=== PATIENT | male | born 1940 ===

== ENCOUNTER → 2017-07-28 | Day surgery (SDC) | payer OTHER ==
[~2017-07-28] VITALS: Ht 185.4 cm; Wt 79.4 kg
--- NOTE | 2017-07-28 14:53 | Operative Report ---
Operative/Inv Procedure Report Surgery Date: 07/28/17 Name of Procedure: Right retrograde pyelogram/brushing and selective cytology Pre-Operative Diagnosis: Hematuria right hydronephrosis right ureteral lesion Post-Operative Diagnosis: Same, rule out TCC of right ureter Estimated Blood Loss: scant Surgeon/Fisher Dip Net: Keith Robert MD Anesthesia: general endotracheal tube Drains: None Specimens: Right selective barbotage, right ureteral brushing Complications: None Condition: Good Operative Indication: Patient is a history of prostate cancer undergoing previous radiation therapy was noted to have microhematuria. Workup revealed right hydronephrosis, with a suspected right ureteral lesion. Operative/Procedure Note Note: After uneventful induction of general anesthesia patient was placed in the lithotomy position and prepped and draped in a sterile fashion. At this point a 22 Scottish cystoscope was passed per urethra and into the bladder thorough inspection of bladder did not reveal any mucosal lesions. Pylorus is identified , and noted to be normal. At this point it was catheterized with an open-ended catheter. A selective barbotage was performed and sent for analysis. At this point a brushing was performed and distal ureter, and sent for analysis. At this point a retrograde Polygram was performed, which revealed a large distal right ureteral lesion with dilation of the ureter in that area, leading to narrow distal ureter. At this point the cystoscope was removed the patient was then awakened and returned to recovery room in good condition.
--- NOTE | 2017-07-29 22:49 | RADIOLOGY REPORT ---
EXAMINATION: Fluoroscopic guidance in the cystoscopy suite. CLINICAL INDICATION: Retrograde right kidney, ureteroscopy in OR per Dr. Robert. COMPARISON: None available. TECHNIQUE: 10 spot films are obtained during retrograde examination of the distal right ureter. The total time fluoroscopy was 35 seconds. FINDINGS/IMPRESSION: The abnormality of the distal right ureter consists of the distal intraluminal filling defect measuring approximately 1 cm in a focally dilated portion of the ureter. Also, there is lack of filling of the more proximal ureter at the pelvic inlet. This could represent a ureteral stricture. The right ureter proximal to this abnormality is not dilated. Evidently, ureteroscopy was performed to elucidate these findings. 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 Please refer to the operative notes for further details.
== END ==
LOC: STS 03:49
DX: N13.39 Other hydronephrosis (principal); R31.29 Other microscopic hematuria; N28.89 Other specified disorders of kidney and ureter; Z85.46 Personal history of malignant neoplasm of prostate; I10 Essential (primary) hypertension
CPT/HCPCS: 74018; 88305; J0690; J1885; J2250